=== PATIENT | male | born 1995 | race Caucasian/White ===

== ENCOUNTER 2019-09-15 05:39 | Emergency (ER) | payer OTHER ==
[~2019-09-15] VITALS: Ht 177.8 cm; Wt 68.0 kg
== END 2019-09-15 14:02 | disposition home or self-care (01) ==
LOC: ER 05:39
DX: R11.2 Nausea with vomiting, unspecified (principal); E86.0 Dehydration; E87.8 Other disorders of electrolyte and fluid balance, not elsewhere classified; Z03.818 Encounter for observation for suspected exposure to other biological agents ruled out

== ENCOUNTER 2020-03-17 05:13 | Emergency (ER) | payer OTHER ==
[~2020-03-17] VITALS: Ht 177.8 cm; Wt 63.5 kg
== END 2020-03-17 13:04 | disposition home or self-care (01) ==
LOC: ER 05:13
DX: K29.70 Gastritis, unspecified, without bleeding (principal); E86.0 Dehydration; Z03.818 Encounter for observation for suspected exposure to other biological agents ruled out